=== PATIENT | male | born 1975 | race Caucasian/White ===

== ENCOUNTER 2022-07-17 11:55 | Emergency (ER) | payer SELFPAY ==
[~2022-07-17] VITALS: Ht 185.4 cm; Wt 150.0 kg
[2022-07-17 11:57] VITALS: BP 163/100
== END 2022-07-17 13:22 | disposition left against medical advice (07) ==
LOC: ER 12:55
DX: Z53.21 Procedure and treatment not carried out due to patient leaving prior to being seen by health care provider (principal)
CPT/HCPCS: 99283

== ENCOUNTER 2022-10-02 20:18 | Emergency (ER) | payer MEDICAID ==
[~2022-10-02] VITALS: Ht 190.5 cm; Wt 127.0 kg
[2022-10-02 20:24] VITALS: BP 141/82
[2022-10-02] MEDS ORDERED: ONDANSETRON HCL 4MG/2ML INJ IV STA (20:44)
[2022-10-02] MEDS ORDERED: SODIUM CHLORIDE 0.9% 1,000 ML IV ONE (20:45)
[2022-10-02 21:06] LABS: HEMATOCRIT. 48.6 % (42.0-52.0); HEMOGLOBIN. 16.1 g/dL (14.0-18.0); MEAN CORPUSCULAR HEMOGLOBIN 26.5 pg (28.0-32.0); MEAN CORPUSCULAR VOLUME 80.2 fL (80.0-94.0); MEAN PLATELET VOLUME 7.7 fl (7.4-10.4); PLATELET 283 x1000/uL (130-400); RED BLOOD CELL COUNT 6.06 mill/uL (4.7-6.1); RED CELL DISTRIBUTION WIDTH 14.8 % (11.6-14.6)
[2022-10-02 21:11] LABS: CHLORIDE 104 mEq/L (98-107)
[2022-10-02] MEDS ORDERED: KETOROLAC 15MG/ML VIAL IV ONE (21:30)
[2022-10-02 22:14] LABS: PLATELET ESTIMATE NORMAL
== END 2022-10-02 23:30 | disposition home or self-care (01) ==
LOC: ER 20:18
DX: R11.2 Nausea with vomiting, unspecified (principal); R19.7 Diarrhea, unspecified; E11.9 Type 2 diabetes mellitus without complications; I10 Essential (primary) hypertension
CPT/HCPCS: 36415; 71045; 80053; 83690; 84484; 85025; 96361; 96374; 96375; 99284; J1885; J2405; J7030; Z7610